=== PATIENT | female | born 1955 | race Caucasian/White ===

== ENCOUNTER 2018-04-07 06:25 | Day surgery (SDC) | payer OTHER ==
[2018-04-07] MEDS ORDERED: Ringers Lactate 1,000 ML IV ONE (06:36)
[2018-04-07] MEDS ORDERED: PROPOFOL 200 MG/20 ML VIAL IV ONE ×2 (06:50→08:20)
[2018-04-07] MEDS ORDERED: FENTANYL CITR 100 MCG/2 ML ONE (06:52)
[2018-04-07] MEDS ORDERED: MIDAZOLAM HCL 2 MG/2 ML INJ ONE (06:52)
[2018-04-07] MEDS ORDERED: NA CHLORIDE 0.9% 1,000 ML ONE (06:57)
[2018-04-07] MEDS: LIDOCAINE 1% W/EPI 1:100,000 MDV 50 ML VIAL ONE ×3 (07:15→08:05)
[2018-04-07] MEDS ORDERED: LIDOCAINE 1% MPF 30 ML VIAL ONE (07:48)
[2018-04-07] MEDS ORDERED: KETOROLAC 30 MG/ML INJ ONE (08:24)
--- NOTE | 2018-04-07 19:16 | OP ---
Date of Procedure: 04/07/2018 Surgeon: Tyesha Redd MD Preoperative Diagnosis: Thickened endometrium. The patient on Osphena, possible endometrial polyp. Postoperative Diagnosis: Confirmed endometrial polyp, atrophic endometrium. Procedures Performed: Operative hysteroscopy, polypectomy, and dilation and curettage. Anesthesia: MAC plus paracervical block. Specimens: Endometrial polyp and scant endometrial curettings. Complications: None. Drains: None. Condition: Stable. Findings: Cervical canal extremely stenotic. Uterus anteflexed. Endometrial polyp found in the fun yvette endometrium. Rest of the endometrium appeared to be atrophic. Scant curettings were obtained. The patient has uterine anterior and posterior wall prolapse. The patient is prolapsed. POP-Q is as follows -2, -2, -2, 4 cm, moderate and 6, -2 -1, and -4. Indications For Procedure: The patient is a 62-year-old with atrophic vaginitis. She was placed on Osphena since she failed other local vaginal creams. After a year of Osphena, she was evaluated for endometrial thickness with a transvaginal ultrasound and found to be thick, and there was question of a possible polyp. So, the extremely small risk of endometrial cancer, especially since the Osphena is an estrogen receptor modulator were discussed, and the patient was consented for hysteroscopy, D hans Bautista. Description Of Procedure: After informed consent was verified, she was brought to the OR, placed in supine fashion on the operating table. After MAC was given, she was placed in a dorsal lithotomy pos ition using Galindo stirrups. A pelvic exam was performed. Uterus anteflexed. There was some scar in the posterior fornix on the left side. Cervix extremely stenotic and flushed with the vaginal wall. A speculum was placed to expose the cervix. Anterior lip injected with 1% lidocaine mixed with 1:100 ,000 epinephrine. After Allis clamps were placed here, the os was opened externally with the help of an Allis clamp. Once this was done, then paracervical block was given in the usual fashion. Diagno stic SlimLine hysteroscope was introduced into the cervical canal, attempted to pass through the cerv ical canal. This was difficult, pull it out, dilated the cervix to about 2 cm and put the scope back in and then passed into the canal by ducking under the anterior lip. After the uterine cavity was entered, there was a fundal lesion that appeared to be polypoid. So, th e SlimLine scope was changed to an operative sheath. Then, scissors were placed through this and mos t of the polyp from its base was , and the scope removed. With the help of Surya's forcep s, this was removed. Scope was reintroduced and we made sure that the entire polyp was removed, and it was completely removed. Then, after the scope was removed, endometrial curettings were performed with a #1 curette. All the instruments were removed. Instrument, needle, and sponge counts were don e and were correct at the end of the case. The POP-Q was evaluated since this was very obvious. She was recovered from anesthesia in the OR and taken to PACU in stable condition. She will follow up w zaira bower in 1 week. CRYSTAL Voice ID: [id number] Report ID: [id number]
== END 2018-04-07 09:55 | disposition home or self-care (01) ==
LOC: OR 06:25
PROVIDERS: ATTEND Obstetrics & Gynecology
PROC: 0UDB7ZX Extraction of Endometrium, Via Natural or Artificial Opening, Diagnostic (ICD-10-PCS; 2018-04-07)
PROC: 0UB98ZX Excision of Uterus, Via Natural or Artificial Opening Endoscopic, Diagnostic (ICD-10-PCS; principal; 2018-04-07 07:30)
DX: N84.0 Polyp of corpus uteri (principal); N85.8 Other specified noninflammatory disorders of uterus; E03.9 Hypothyroidism, unspecified; Z88.0 Allergy status to penicillin; Z88.6 Allergy status to analgesic agent; Z82.49 Family history of ischemic heart disease and other diseases of the circulatory system; Z80.3 Family history of malignant neoplasm of breast; Z82.3 Family history of stroke; Z80.1 Family history of malignant neoplasm of trachea, bronchus and lung; Z80.0 Family history of malignant neoplasm of digestive organs
CPT/HCPCS: 88305; J2250; J3010; J7030